=== PATIENT | male | born 1945 | race Caucasian/White ===

== ENCOUNTER 2018-05-24 16:43 | Inpatient (IN) | payer MEDICARE, OTHER ==
[~2018-05-24] VITALS: Ht 175.3 cm; Wt 94.4 kg
[2018-05-24 17:05] LABS: BASOPHILS # (AUTO) 0.1 10^3/uL (0.0-0.1); BASOPHILS % (AUTO) 1 % (0-10); EOSINOPHILS # (AUTO) 0.1 10^3/uL (0.0-0.3); EOSINOPHILS % (AUTO) 1 % (0-10); HEMATOCRIT 42 % (40-54); HEMOGLOBIN 14.5 G/DL (13.3-17.7); LYMPHOCYTES # (AUTO) 2.6 X 10^3 (1.0-4.0); LYMPHOCYTES % (AUTO) 24 % (12-44); MEAN CORPUSCULAR HEMOGLOBIN 30 PG (25-34); MEAN CORPUSCULAR HGB CONC 34 G/DL (32-36); MEAN CORPUSCULAR VOLUME 86 FL (80-99); MONOCYTES # (AUTO) 0.8 X 10^3 (0.0-1.0); MONOCYTES % (AUTO) 8 % (0-12); NEUTROPHILS # (AUTO) 7.1 X 10^3 (1.8-7.8); NEUTROPHILS % (AUTO) 66 % (42-75); PLATELET COUNT 394 10^3/uL (130-400); RED BLOOD COUNT 4.89 10^6/uL (4.35-5.85); RED CELL DISTRIBUTION WIDTH 14.7 % (10.0-14.5); WHITE BLOOD COUNT 10.7 10^3/uL (4.3-11.0)
--- NOTE | 2018-05-24 17:13 | ED General ---
General Stated Complaint: HEAT EXPOSURE/SYNCOPAL EPISODE Source of Information: Patient Exam Limitations: No Limitations History of Present Illness Date Seen by Provider: May 24, 2018 Time Seen by Provider: 16:54 Initial Comments Here by EMS with report of syncopal episode. 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 They did get that down but at the end of the day he had got overheated. He sat down and then subsequently vomited and passed out for about a minute. He is still sweating. EMS was summoned and initiated 2 IVs due to initial blood pressure in the 70s. He arrives with blood pressure in the low 100s systolic and appears to be responding to fluids. They do have 2 L of normal saline running currently. Patient is tolerating that well. He complains of muscle aches in the large muscle groups and describes it as cramping. States he is feeling better now. Timing/Duration: 1/2 Hour Severity: Moderate Associated Systoms: No Chest Pain, No Fever/Chills; Nausea/Vomiting; No Shortness of Air; Syncope, Weakness Allergies and Home Medications Allergies Coded Allergies: Penicillins (Verified Allergy, Unknown, 05/24/18) procaine (Verified Allergy, Unknown, 05/24/18) Patient Home Medication List Home Medication List Reviewed: Yes Review of Systems Constitutional: see HPI; No chills, No fever EENTM: no symptoms reported Respiratory: No cough, No short of breath Cardiovascular: No chest pain, No edema; syncope Gastrointestinal: No abdominal pain; nausea, vomiting Genitourinary: no symptoms reported Musculoskeletal: see HPI, muscle pain, muscle cramps Skin: no symptoms reported All Other Systems Reviewed Negative Unless Noted: Yes Past Xzzrvcb-Mogove-Fettek Hx Past Med/Social Hx: Reviewed Nursing Past Med/Soc Hx Patient Social History Alcohol Use: Occasionally Uses Recreational Drug Use: No Smoking Status: Former Smoker Past Medical History Surgeries: Yes (kidney cyst) Respiratory: No Cardiac: Yes Hypertension Neurological: No Genitourinary: Yes (kidney cysts) Gastrointestinal: No Musculoskeletal: No Endocrine: Yes Hypothyroidsim Family Medical History Reviewed Nursing Family Hx No Pertinent Family Hx Physical Exam Vital Signs Vital Signs - First Documented 05/24/18 16:50 Temp 97.6 Pulse 65 Resp 20 B/P (MAP) 104/63 (77) Pulse Ox 92 O2 Delivery Room Air Capillary Refill : General Appearance: No Apparent Distress, WD/WN HEENT: PERRL/EOMI, Pharynx Normal Neck: Non Tender, Supple Respiratory: Lungs Clear, Normal Breath Sounds Cardiovascular: Regular Rate, Rhythm, No Murmur Gastrointestinal: Non Tender, Soft Back: Normal Inspection, No CVA Tenderness, No Vertebral Tenderness Extremity: Normal Inspection, Normal Range of Motion, Other (tenderness in the upper legs) Neurologic/Psychiatric: Alert, Oriented x3 Skin: Normal Color, Damp, Other (patient is still sweating.) Progress/Results/Core Measures Suspected Sepsis SIRS Temperature: Pulse: Respiratory Rate: Laboratory Tests 05/24/18 16:50: White Blood Count 10.7 Blood Pressure / Mean: Laboratory Tests 05/24/18 16:50: Creatinine 3.16H, Platelet Count 394, Total Bilirubin 0.7 Results/Orders Lab Results Laboratory Tests Test 05/24/18 16:50 Range/Units White Blood Count 10.7 4.3-11.0 10^3/uL Red Blood Count 4.89 4.35-5.85 10^6/uL Hemoglobin 14.5 13.3-17.7 G/DL Hematocrit 42 40-54 % Mean Corpuscular Volume 86 80-99 FL Mean Corpuscular Hemoglobin 30 25-34 PG Mean Corpuscular Hemoglobin Concent 34 32-36 G/DL Red Cell Distribution Width 14.7 H 10.0-14.5 % Platelet Count 394 130-400 10^3/uL Mean Platelet Volume 9.0 7.4-10.4 FL Neutrophils (%) (Auto) 66 42-75 % Lymphocytes (%) (Auto) 24 12-44 % Monocytes (%) (Auto) 8 0-12 % Eosinophils (%) (Auto) 1 0-10 % Basophils (%) (Auto) 1 0-10 % Neutrophils # (Auto) 7.1 1.8-7.8 X 10^3 Lymphocytes # (Auto) 2.6 1.0-4.0 X 10^3 Monocytes # (Auto) 0.8 0.0-1.0 X 10^3 Eosinophils # (Auto) 0.1 0.0-0.3 10^3/uL Basophils # (Auto) 0.1 0.0-0.1 10^3/uL Sodium Level 142 135-145 MMOL/L Potassium Level 4.1 3.6-5.0 MMOL/L Chloride Level 106 98-107 MMOL/L Carbon Dioxide Level 20 L 21-32 MMOL/L Anion Gap 16 H 5-14 MMOL/L Blood Urea Nitrogen 32 H 7-18 MG/DL Creatinine 3.16 H 0.60-1.30 MG/DL Estimat Glomerular Filtration Rate 20 BUN/Creatinine Ratio 10 Glucose Level 165 H 70-105 MG/DL Calcium Level 12.8 H 8.5-10.1 MG/DL Phosphorus Level 3.4 2.3-4.7 MG/DL Total Bilirubin 0.7 0.1-1.0 MG/DL Aspartate Amino Transf (AST/SGOT) 40 H 5-34 U/L Alanine Aminotransferase (ALT/SGPT) 35 0-55 U/L Alkaline Phosphatase 59 40-136 U/L Total Creatine Kinase 926 H 30-200 U/L Total Protein 8.9 H 6.4-8.2 GM/DL Albumin 5.1 H 3.2-4.5 GM/DL My Orders Orders - PO BABCOCK MD Cbc With Automated Diff (05/24/18 16:57) Comprehensive Metabolic Panel (05/24/18 16:57) Creatine Kinase (05/24/18 16:57) Ua Culture If Indicated (05/24/18 16:57) Ionized Calcium (05/24/18 17:33) Phosphorus (05/24/18 17:33) Ns Iv 1000 Ml (Sodium Chloride 0.9%) (05/24/18 17:45) Vital Signs/I&O 05/24/18 16:50 Temp 97.6 Pulse 65 Resp 20 B/P (MAP) 104/63 (77) Pulse Ox 92 O2 Delivery Room Air Capillary Refill : Progress Note : Progress Note Seen and evaluated. We will continue IV fluid initiated by EMS. Labs ordered. Monitor patient. 1737: I have reviewed the labs. Creatinine is elevated and so is the calcium. Patient has elevated total CK. Has findings of acute renal failure, hypercalcemia and rhabdomyolysis. I did discuss the case with Dr. Chadwick. She accepts patient for admission, inpatient status. Findings and concerns discussed with patient and family who agree with plan. Normal saline 250 mL per hour 1 L ordered. We will continue fluid at 150 mL an hour after that. Departure Communication (Admissions) Time/Spoke to Admitting Phy: 17:37 Impression Primary Impression: Acute renal failure Qualified Codes: N17.9 - Acute kidney failure, unspecified Additional Impressions: Rhabdomyolysis Qualified Codes: M62.82 - Rhabdomyolysis Hypercalcemia Volume depletion Disposition: 09 ADMITTED INPATIENT Condition: Stable Admissions Decision to Admit Reason: Admit from ER (General) Decision to Admit/Date: May 24, 2018 Time/Decision to Admit Time: 17:37 Departure-Patient Inst. Referrals: JUAN SINGLETARY DO (PCP/Family) Primary Care Physician PO BABCOCK MD May 24, 2018 17:13
[2018-05-24 17:25] LABS: ALBUMIN 5.1 GM/DL (3.2-4.5); BILIRUBIN,TOTAL 0.7 MG/DL (0.1-1.0); CALCIUM 12.8 MG/DL (8.5-10.1); CREATININE SERUM 3.16 MG/DL (0.60-1.30); POTASSIUM 4.1 MMOL/L (3.6-5.0); TOTAL PROTEIN 8.9 GM/DL (6.4-8.2)
[2018-05-24] MEDS ORDERED: NS IV 1000 ML 1,000 ML IV SCH (17:45)
[2018-05-24] MEDS ORDERED: LEVOTHYROXINE ×2 (17:47→21:34)
[2018-05-24] MEDS ORDERED: LOSARTAN (17:47)
[2018-05-24] MEDS ORDERED: HCTZ (17:47)
[2018-05-24 19:00] VITALS: BP 149/80
[2018-05-24] MEDS ORDERED: ONDANSETRON 4 MG/2 ML (SDV) Z0FRAN IV PRN (19:00)
[2018-05-24] MEDS ORDERED: ACETAMINOPHEN 500 MG TAB (TYLENOL) PO PRN (19:00)
[2018-05-24] MEDS ORDERED: CATHETER FLUSH 10 ML SYR IV PRN (19:00)
[2018-05-24] MEDS: NS IV 1000 ML 1,000 ML IV SCH (20:00)
[2018-05-24 20:47] LABS: BILIRUBIN,URINE NEGATIVE (NEGATIVE); CLARITY,URINE CLEAR; COLOR,URINE YELLOW; GLUCOSE, URINE (UA) NEGATIVE (NEGATIVE); KETONES,URINE NEGATIVE (NEGATIVE); LEUKOCYTE ESTERASE ,URINE 1+ (NEGATIVE); NITRITE,URINE NEGATIVE (NEGATIVE); PH,URINE 5 (5-9); PROTEIN,URINE 3+ (NEGATIVE); UROBILINOGEN,URINE NORMAL (NORMAL)
[2018-05-24 21:07] LABS: BACTERIA,URINE NEGATIVE /HPF
[2018-05-24] MEDS ORDERED: LOSARTAN PO (21:34)
[2018-05-24] MEDS ORDERED: HCTZ PO (21:34)
[2018-05-25 00:02] VITALS: BP 128/71
[2018-05-25] MEDS: NS IV 1000 ML 1,000 ML IV SCH ×3 (02:28→16:48)
[2018-05-25 04:11] VITALS: BP 120/73
[2018-05-25 06:22] LABS: BASOPHILS % (AUTO) 0 % (0-10); EOSINOPHILS # (AUTO) 0.1 10^3/uL (0.0-0.3); EOSINOPHILS % (AUTO) 1 % (0-10); HEMATOCRIT 35 % (40-54); HEMOGLOBIN 11.7 G/DL (13.3-17.7); LYMPHOCYTES # (AUTO) 1.9 X 10^3 (1.0-4.0); LYMPHOCYTES % (AUTO) 22 % (12-44); MEAN CORPUSCULAR HEMOGLOBIN 29 PG (25-34); MEAN CORPUSCULAR HGB CONC 34 G/DL (32-36); MEAN CORPUSCULAR VOLUME 87 FL (80-99); MEAN PLATELET VOLUME 8.9 FL (7.4-10.4); MONOCYTES # (AUTO) 0.7 X 10^3 (0.0-1.0); MONOCYTES % (AUTO) 8 % (0-12); NEUTROPHILS % (AUTO) 68 % (42-75); PLATELET COUNT 314 10^3/uL (130-400); RED BLOOD COUNT 3.99 10^6/uL (4.35-5.85); RED CELL DISTRIBUTION WIDTH 14.9 % (10.0-14.5); WHITE BLOOD COUNT 8.7 10^3/uL (4.3-11.0)
[2018-05-25 06:36] LABS: ALBUMIN 3.6 GM/DL (3.2-4.5); BILIRUBIN,TOTAL 0.5 MG/DL (0.1-1.0); CREATININE SERUM 1.86 MG/DL (0.60-1.30); POTASSIUM 3.9 MMOL/L (3.6-5.0); TOTAL PROTEIN 6.3 GM/DL (6.4-8.2)
[2018-05-25 08:30] VITALS: BP 130/79
--- NOTE | 2018-05-25 08:58 | History & Physical-Hospitalist ---
History of Present Illness HPI/Chief Complaint Pt is a 72yoCM who presented to the ER following a syncopal episode at work. 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 Yesterday he started work at 630AM and did not take many breaks and got behind on his fluid intake. He was standing next to someone who noticed he was looking off balance and steadied him. He then remembers everything getting very light and then passed out. He vomited as well during this episode. EMS was called and he was found to be hypotensive and IVF were started there. Evaluation in the ER revealed him to be in acute renal failure with mild rhabdomyolysis and he was admitted. This morning he is standing at his bed and reports feeling much better. Exam Limitations: no limitations Date Seen 05/25/18 Time Seen by Provider: 08:56 Attending Physician Fani Chadwick MD PCP Gigi Coreas DO Referring Physician Date of Admission May 24, 2018 at 17:56 Home Medications & Allergies Home Medications Reviewed patient Home Medication Reconciliation performed by pharmacy medication reconciliations gastroenterology technician and/or nursing. Patients Allergies have been reviewed. Allergies Allergies Coded Allergies Penicillins (Verified Allergy, Unknown, 05/24/18) procaine (Verified Allergy, Unknown, 05/24/18) Past Bhmwxnd-Nmlpze-Epodvg Hx Past Med/Social Hx: Reviewed Nursing Past Med/Soc Hx Patient Social History Alcohol Use: Occasionally Uses Alcohol Beverage of Choice: Wine Recreational Drug Use: No Smoking Status: Former Smoker 2nd Hand Smoke Exposure: No Physical Abuse Screen: No Sexual Abuse: No Recent Foreign Travel: No Contact w/other who traveled: No Recent Hopitalizations: No Recent Infectious Disease Expo: No Seasonal Allergies Seasonal Allergies: No Past Medical History Currently Using CPAP: No Currently Using BIPAP: No Cardiac: Hypertension Sexually Transmitted Disease: No HIV/AIDS: No Endocrine: Hypothyroidsim History of Blood Disorders: No Adverse Reaction to Blood Jeffery: No Family History Reviewed Nursing Family Hx No Pertinent Family Hx Review of Systems Constitutional: No chills; diaphoresis; No fever EENTM: No blurred vision, No double vision, No nose congestion, No throat pain Respiratory: No cough, No dyspnea on exertion, No short of breath Cardiovascular: No chest pain, No edema, No palpitations; syncope Gastrointestinal: No abdominal pain, No constipation, No diarrhea, No nausea, No vomiting Genitourinary: No dysuria, No frequency Musculoskeletal: No joint pain, No muscle pain Skin: No lesions, No rash Psychiatric/Neurological: Denies Headache, Denies Numbness, Denies Seizure, Denies Tingling Physical Exam Physical Exam Vital Signs Vital Signs - First Documented 05/24/18 16:50 Temp 97.6 Pulse 65 Resp 20 B/P (MAP) 104/63 (77) Pulse Ox 92 O2 Delivery Room Air Capillary Refill : Less Than 3 Seconds General Appearance: No Apparent Distress, WD/WN HEENT: PERRL/EOMI, Moist Mucous Membranes Neck: Non Tender, Supple Respiratory: Lungs Clear, No Respiratory Distress Cardiovascular: Regular Rate, Rhythm, No Murmur Gastrointestinal: Normal Bowel Sounds, Non Tender, Soft Extremity: Normal Capillary Refill, No Calf Tenderness Neurologic/Psychiatric: Alert, Oriented x3, Normal Mood/Affect Skin: Normal Color, Warm/Dry Results Results/Procedures Labs Laboratory Tests 05/24/18 16:50 05/25/18 05:52 Patient resulted labs reviewed. Assessment/Plan Admission Diagnosis Acute renal failure Admission Status: Inpatient Order (span 2 midnights) Reason for Inpatient Admission: IVF fluids, mild rhabdo Diagnosis/Problems Diagnosis/Problems (1) Acute renal failure Status: Acute Assessment & Plan: Heat Treater improved today but still not back to his normal Continue IVF Hypercalcemia improving Qualifiers: Acute renal failure type: unspecified Qualified Codes: N17.9 - Acute kidney failure, unspecified (2) Rhabdomyolysis Status: Acute Assessment & Plan: Improving, continue IVF Qualifiers: Rhabdomyolysis type: non-traumatic Qualified Codes: M62.82 - Rhabdomyolysis (3) Hypercalcemia Status: Acute Assessment & Plan: Improved but at upper limits of normal Will need outpatient follow up Clinical Quality Measures DVT/VTE Risk/Contraindication: Risk Factor Score Per Nursin RFS Level Per Nursing on Admit: 3=High FANI CHADWICK MD May 25, 2018 8:58 am
[2018-05-25] MEDS ORDERED: LEVO150T6 PO (09:14)
[2018-05-25] MEDS ORDERED: LOSA50TA36 PO (09:14)
[2018-05-25] MEDS ORDERED: HYDR25TA4 PO (09:14)
[2018-05-25] MEDS ORDERED: MULT-406 PO (09:16)
[2018-05-25] MEDS ORDERED: THIA100T80 PO (09:16)
[2018-05-25] MEDS ORDERED: CYAN10006 PO (09:16)
[2018-05-25] MEDS ORDERED: VITA400C58 PO (09:16)
[2018-05-25] MEDS ORDERED: CHOL10007 PO (09:16)
[2018-05-25] MEDS ORDERED: BETA10003 PO (09:16)
[2018-05-25] MEDS ORDERED: ASCO-262 PO (09:16)
[2018-05-25] MEDS ORDERED: PYRI100T2 PO (09:16)
[2018-05-25 12:30] VITALS: BP 145/81
[2018-05-25] MEDS ORDERED: PATIENT MAY USE OWN MEDS, ALL MC SCH (14:30)
[2018-05-25 15:35] VITALS: BP 133/70
[2018-05-25 20:30] VITALS: BP_SYST 162; BP_SYST 165; BP_DIAS 88; BP_DIAS 94
[2018-05-25] MEDS ORDERED: LEVOTHYROXINE 150 MCG (LEVOTHROID) TAB PO SCH (21:00)
[2018-05-26] MEDS: NS IV 1000 ML 1,000 ML IV SCH ×2 (00:03→06:31)
[2018-05-26 00:07] VITALS: BP 144/73
[2018-05-26] MEDS ORDERED: ASCORBIC ACID (VIT C) 500 MG TABLET PO SCH (07:00)
[2018-05-26] MEDS ORDERED: THIAMINE 100 MG (VITAMIN B-1) TAB PO SCH (07:00)
[2018-05-26] MEDS ORDERED: MULTIVIT W/MINERALS TAB (THERAGRAN M) PO SCH (07:00)
[2018-05-26 08:30] VITALS: BP 136/72
[2018-05-26] MEDS ORDERED: CYANOCOBALAMIN 1,000 MCG (VITAMIN B-12) TABLET PO SCH (09:00)
[2018-05-26] MEDS ORDERED: VITAMIN D3 1,000 UNITS (CHOLECALCIFEROL) TABLET PO SCH (09:00)
[2018-05-26] MEDS ORDERED: PYRIDOXINE (VITAMIN B-6) 50 MG TABLET PO SCH (09:00)
[2018-05-26] MEDS ORDERED: NON-FORMULARY MEDICATION 1 EA EA (Ascorbate Calcium (Vitamin C) 500 MG) PO SCH (09:00)
[2018-05-26] MEDS ORDERED: THIAMINE HCL 100 MG PO SCH (09:00)
[2018-05-26] MEDS ORDERED: NON-FORMULARY MEDICATION 1 EA EA (Cholecalciferol (Vitamin D3) (Vitamin D3) 1,000 UNIT) PO SCH (09:00)
[2018-05-26] MEDS ORDERED: VITAMIN E 400 INTLU CAP PO SCH (09:00)
[2018-05-26] MEDS ORDERED: MULTIVITAMIN WITH MINERALS PO SCH (09:00)
[2018-05-26] MEDS ORDERED: PYRIDOXINE HCL 100 MG PO SCH (09:00)
[2018-05-26] MEDS ORDERED: BETA CAROTENE PO SCH (09:00)
[2018-05-26] MEDS ORDERED: NON-FORMULARY MEDICATION 1 EA EA (Vitamin E Mixed (Vitamin E) 400 UNIT) PO SCH (09:00)
[2018-05-26 09:18] LABS: CALCIUM 9.9 MG/DL (8.5-10.1); CREATININE SERUM 1.23 MG/DL (0.60-1.30)
--- NOTE | 2018-05-26 09:57 | Progress Note-Hospitalist ---
Progress Note Progress Notes/Assess & Plan Date Seen 05/26/18 Time Seen by Provider: 09:52 Assessment & Plan The patient is a 72-year-old white male who was admitted on 05/24 after having a syncopal episode at work. 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 He had been out in the heat for several hours working on a project. His coworkers noted him to be wobbly and moved to assist him and then he dropped. States that he had been taking fluids but apparently not enough. Initial workup showed his creatinine to be 3+, CPK to be 300+, and calcium to be elevated. These have all improved satisfactorily with hydration and he feels good today. We discussed mechanisms to avoid this in the future which would include early start time and knocking off by noon or sooner if the heat index is aBOMINABLE. It is also suggested that on those days he not take his scheduled hydrochlorothiazide. Physical exam: He is bright and engaging. Lungs clear to auscultation. CV is regular. Impression: Dehydration/heat exhaustion. 2.hypertension Plan: Discharge. See discharge sequence for medications and routines. JASPER COLLIER MD May 26, 2018 09:57
--- NOTE | 2018-05-26 10:06 | Discharge Instructions ---
Discharge Instructions Patient Instructions Patient Instructions: In the future make intellectual decisions about safety in heat conditions. This would include a brim hat, measured fluid replacement including Gatorade. Commencing work at sunrise and quitting at noon or earlier as refers would do is also prudent. In addition I would not take the hydrochlorothiazide on work days in this kind of heat. Activity & Diet Discharge Diet: No Restrictions Activity as Tolerated: Yes JASPER COLLIER MD May 26, 2018 10:06
--- NOTE | 2018-05-26 10:08 | Short Stay Summary-Hospitalist ---
Short Stay Diagnosis D/C Date 05/26/18 1.dehydration/acute renal failure. 2 mild to moderate rhabdomyolysis. 3.hypertension Clinical Quality Measures DVT/VTE Risk/Contraindication: Risk Factor Score Per Nursin RFS Level Per Nursing on Admit: 3=High JASPER COLLIER MD May 26, 2018 10:08
[2018-05-27] MEDS ORDERED: NON-FORMULARY MEDICATION 1 EA EA (Losartan Potassium 25 MG) PO SCH (09:00)
[2018-05-27] MEDS ORDERED: NON-FORMULARY MEDICATION 1 EA EA (Hydrochlorothiazide 25 MG) PO SCH (09:00)
[2018-07-09] MEDS ORDERED: APIX5TAB PO (09:18)
== END 2018-05-26 10:45 | disposition home or self-care (01) | DRG 683 ==
LOC: EDUNIT# 16:43 → ER 16:44 → 4TH 17:56
PROVIDERS: ADMIT Family Medicine; ATTEND Family Medicine
DX: N17.9 Acute kidney failure, unspecified (principal); M62.82 Rhabdomyolysis; E83.52 Hypercalcemia; T67.5XXA Heat exhaustion, unspecified, initial encounter; E86.0 Dehydration; R55 Syncope and collapse; I10 Essential (primary) hypertension; E03.9 Hypothyroidism, unspecified; N28.1 Cyst of kidney, acquired; X30.XXXA Exposure to excessive natural heat, initial encounter; Z87.891 Personal history of nicotine dependence
CPT/HCPCS: 36415; 80048; 80053; 81000; 82330; 82550; 84100; 85025; 96360

== ENCOUNTER → 2018-08-16 | Outpatient (CLI) | payer MEDICARE, OTHER ==
[~2018-08-16] MED LIST: APIX5TAB PO; ASCO-262 PO; BETA10003 PO; CHOL10007 PO; CYAN10006 PO; HCTZ; HCTZ PO; HYDR25TA4 PO; LEVO150T6 PO; LEVOTHYROXINE; LOSA50TA7 PO; LOSARTAN; LOSARTAN PO; MULT-406 PO; PYRI100T2 PO; THIA100T80 PO; VITA400C58 PO
== END ==
LOC: CARD 10:37
PROVIDERS: ATTEND Internal Medicine Interventional Cardiology
DX: I82.409 Acute embolism and thrombosis of unspecified deep veins of unspecified lower extremity (principal); I10 Essential (primary) hypertension; I26.99 Other pulmonary embolism without acute cor pulmonale; I27.20 Pulmonary hypertension, unspecified; I34.0 Nonrheumatic mitral (valve) insufficiency
CPT/HCPCS: 93306

== ENCOUNTER → 2018-08-20 | Outpatient (CLI) | payer MEDICARE, OTHER ==
[~2018-08-20] MED LIST changes: +RT-ALBUTEROL SULF 2.5 MG/3 ML PRE-MIX VIAL INH ONE
== END ==
LOC: RT 09:35
PROVIDERS: ATTEND Nurse Practitioner Family
DX: R06.00 Dyspnea, unspecified (principal); I26.99 Other pulmonary embolism without acute cor pulmonale
CPT/HCPCS: 94060; 94726; 94729

== ENCOUNTER → 2018-12-07 | Outpatient (CLI) | payer MEDICARE, OTHER ==
[~2018-12-07] MED LIST changes: -RT-ALBUTEROL SULF 2.5 MG/3 ML PRE-MIX VIAL INH ONE
== END ==
LOC: CARD 10:58
PROVIDERS: ATTEND Internal Medicine Interventional Cardiology
DX: I82.409 Acute embolism and thrombosis of unspecified deep veins of unspecified lower extremity (principal); I10 Essential (primary) hypertension; I26.99 Other pulmonary embolism without acute cor pulmonale; I27.20 Pulmonary hypertension, unspecified; I51.9 Heart disease, unspecified
CPT/HCPCS: 93306

== ENCOUNTER → 2019-06-06 | Outpatient (CLI) | payer MEDICARE, OTHER ==
[~2019-06-06] MED LIST changes: +LOSA50TA63 PO; -LOSA50TA7 PO
== END ==
LOC: CARD 09:48
PROVIDERS: ATTEND Internal Medicine Interventional Cardiology
DX: I34.0 Nonrheumatic mitral (valve) insufficiency (principal); I27.20 Pulmonary hypertension, unspecified; I11.9 Hypertensive heart disease without heart failure; I82.409 Acute embolism and thrombosis of unspecified deep veins of unspecified lower extremity; I26.99 Other pulmonary embolism without acute cor pulmonale
CPT/HCPCS: 93306

== ENCOUNTER 2019-12-05 08:00 | Emergency (ER) | payer MEDICARE, OTHER ==
[~2019-12-05] VITALS: Ht 175 cm; Wt 93.0 kg
[~2019-12-05 08:00] MED LIST changes: +CYAN-41 PO; -CYAN10006 PO; -PYRI100T2 PO; +PYRI100T4 PO; +VITA-272 PO; -VITA400C58 PO
[2019-12-05] MEDS ORDERED: ETOMIDATE IV SOLN 20 MG/10 ML VIAL IV ONE (08:07)
[2019-12-05] MEDS ORDERED: MIDAZOLAM 5 MG/5 ML (VERSED) VIAL INJ ONE (08:07)
[2019-12-05] MEDS ORDERED: SUCCINYLCHOLINE INJ 100 MG/5 ML SYR INJ ONE (08:07)
[2019-12-05] MEDS ORDERED: ROCURONIUM 10 MG/ML 5 ML SYRINGE IV ONE (08:07)
[2019-12-05] MEDS ORDERED: NS IV 1000 ML 1,000 ML IV SCH (08:12)
[2019-12-05] MEDS ORDERED: ONDANSETRON 4 MG/2 ML (SDV) Z0FRAN IVP ONE (08:15)
--- NOTE | 2019-12-05 08:25 | NUR ---
PT TO CT BY CART
--- NOTE | 2019-12-05 08:34 | NUR ---
CALLED TO CHECK TO SEE IF [facility] CAN FLY
--- NOTE | 2019-12-05 08:35 | NUR ---
BACK TO ROOM, PT HAS BLEED DR HERBERT IN CT W PT.
--- NOTE | 2019-12-05 08:35 | NUR ---
UNABLE TO COMPLETE STROKE SCALE
--- NOTE | 2019-12-05 08:36 | NUR ---
[facility] ON STAND BY
--- NOTE | 2019-12-05 08:44 | Diagnostic Imaging Report ---
PROCEDURE: CT head wo r/o stroke. TECHNIQUE: Multiple contiguous axial images were obtained through the brain without the use of intravenous contrast. Auto Exposure Controls were utilized during the CT exam to meet ALARA standards for radiation dose reduction. All CT scans use one or more of the following dose optimizing techniques: automated exposure control, MA and/or KvP adjustment based on patient size and exam type or iterative reconstruction. INDICATION: Stroke, fall. COMPARISON: No prior studies are available for comparison. FINDINGS: There is a moderate amount of acute intraventricular hemorrhage. Acute blood is identified in bilateral lateral ventricles as well as the third ventricle and the fourth ventricle. There is a 16 mm rounded area of hyperdensity in the right cerebellar hemisphere consistent with an acute intraparenchymal hematoma. No other areas of hemorrhage are identified. There is no midline shift. No definite sulcal effacement is seen. IMPRESSION: Acute intraventricular and intraparenchymal hemorrhage, as described. Dictated by: Dictated on workstation # [id number]
--- NOTE | 2019-12-05 08:44 | Diagnostic Imaging Report ---
PROCEDURE: CT cervical spine without contrast. TECHNIQUE: Multiple contiguous axial images were obtained through the cervical spine without the use of intravenous contrast. Sagittal and coronal reformations were then performed. Auto Exposure Controls were utilized during the CT exam to meet ALARA standards for radiation dose reduction. INDICATION: Fall. No prior studies are available for comparison. FINDINGS: Curvature of the cervical spine is normal. There is minimal retrolisthesis C4 on C5. There is degenerative disc disease of C4 on C5. Prevertebral tissues are within normal limits. No fractures are identified. Odontoid is intact. IMPRESSION: Cervical spondylosis. No acute bony abnormality is detected. Dictated by: Dictated on workstation # [id number]
[2019-12-05] MEDS ORDERED: SCOPOLAMINE 1.5 MG (TRANSDERM-SCOP) PATCH TD ONE (08:45)
[2019-12-05] MEDS ORDERED: NS IV 500 ML 500 ML IV SCH (08:45)
--- NOTE | 2019-12-05 08:45 | NUR ---
PT O2 SAT DECREASING TO 88% ON ROOM AIR, O2 APPLIED RT NOTIFIED ETCO2-24
--- NOTE | 2019-12-05 08:50 | NUR ---
PT DOES NOT WANT PT INTUBATED AT THIS X.
[2019-12-05 08:51] LABS: BASOPHILS % (AUTO) 0 % (0-10); EOSINOPHILS % (AUTO) 0 % (0-10); HEMATOCRIT 40 % (40-54); HEMOGLOBIN 12.9 G/DL (13.3-17.7); LYMPHOCYTES # (AUTO) 0.5 X 10^3 (1.0-4.0); LYMPHOCYTES % (AUTO) 4 % (12-44); MEAN CORPUSCULAR HEMOGLOBIN 29 PG (25-34); MEAN CORPUSCULAR HGB CONC 33 G/DL (32-36); MEAN CORPUSCULAR VOLUME 88 FL (80-99); MEAN PLATELET VOLUME 8.5 FL (7.4-10.4); MONOCYTES # (AUTO) 0.3 X 10^3 (0.0-1.0); MONOCYTES % (AUTO) 2 % (0-12); NEUTROPHILS # (AUTO) 9.5 X 10^3 (1.8-7.8); NEUTROPHILS % (AUTO) 93 % (42-75); PLATELET COUNT 314 10^3/uL (130-400); RED CELL DISTRIBUTION WIDTH 13.7 % (10.0-14.5); WHITE BLOOD COUNT 10.2 10^3/uL (4.3-11.0)
[2019-12-05 08:53] LABS: BILIRUBIN,URINE NEGATIVE (NEGATIVE); CLARITY,URINE CLEAR; COLOR,URINE YELLOW; GLUCOSE, URINE (UA) NEGATIVE (NEGATIVE); KETONES,URINE NEGATIVE (NEGATIVE); LEUKOCYTE ESTERASE ,URINE NEGATIVE (NEGATIVE); NITRITE,URINE NEGATIVE (NEGATIVE); PH,URINE 6.5 (5-9); PROTEIN,URINE 1+ (NEGATIVE)
[2019-12-05] MEDS ORDERED: HUMAN PROTHROMBIN COMPLX(PCC) 500 UNIT (KCENTRA) IV ONE ×2 (08:54→09:00)
[2019-12-05 09:02] LABS: INR 1.1 (0.8-1.4); PROTHROMBIN TIME PATIENT 14.9 SEC (12.2-14.7)
--- NOTE | 2019-12-05 09:05 | NUR ---
PT ON OXY MASK AT 10L, O2 SATS 90%.[id number] AT BEDSIDE W , HAS DECIDED TO ALLOW PT TO BE INTUBATED. DR HERBERT NOTIFIED.
[2019-12-05 09:07] LABS: BACTERIA,URINE NEGATIVE /HPF; RBC,URINE RARE /HPF; SQUAMOUS EPITHELIAL CELL,UR RARE /HPF
[2019-12-05 09:10] LABS: ALBUMIN 4.3 GM/DL (3.2-4.5); BILIRUBIN,TOTAL 0.2 MG/DL (0.1-1.0); CALCIUM 10.6 MG/DL (8.5-10.1); CREATININE SERUM 1.4 MG/DL (0.60-1.30); MAGNESIUM 2.1 MG/DL (1.6-2.4); POTASSIUM 4.2 MMOL/L (3.6-5.0); TOTAL PROTEIN 7.6 GM/DL (6.4-8.2)
--- NOTE | 2019-12-05 09:12 | NUR ---
PT READIED FOR INTUBATION RT IN ROOM. VERSED 4MG IV GIVEN ORDERED, KELLI 100MG IV GIVEN 912 SUCCS 100MG IV GIVEN 912 PHARMACY HERE, [facility] STARTED 0915 PT INTUBATED BY RT #8.0 ET TUBE, 22CM @ TEETH. GOOD COLOR CHANGE BS = BILAT,SAT 100% AIRWAY MAINTAINED BY RT 0918 OG #16 INSERTED 0920 [facility] HERE. 0937 [facility] INFUSION COMPLETE 0940 [facility] SENT W [facility] FOR PT 0941 AND DAUGHTER IN LAW AT BEDSIDE 0945 [facility] SENT W [facility] FOR PT. 0949 DISCHARGED TO PER [facility] 0955 REPORT CALLED TO CURLY HERNANDEZ @ MED.
[2019-12-05 09:15] LABS: ABG BASE EXCESS -0.8 MMOL/L (-2.5-2.5); ABG OXYGEN SATURATION 93 % (94-100); ABG PCO2 40 MMHG (35-45); ABG PH 7.39 (7.37-7.43); ABG PO2 62 MMHG (79-93); ABG TCO2 25.3 MMOL/L (21.0-31.0); ALLENS TEST POSITIVE
[2019-12-05 09:16] LABS: INSPIRED O2 20L 50% FI02; PATIENT TEMP 35.2; VENTILATOR NO
--- NOTE | 2019-12-05 09:18 | ED General ---
General Stated Complaint: WEAKNESS Source of Information: Spouse ( IS LIMITED HISTORIAN), Other (PT IS CONFUSED, UNABLE TO GIVE RELIABLE INFORMATION. ) History of Present Illness Date Seen by Provider: Dec 05, 2019 Time Seen by Provider: 08:05 Initial Comments PT ARRIVES VIA POV FROM HOME, WITH . NEEDS FULL ASSIST AND WHEELCHAIR TO GET OUT OF VEHICLE REPORTS THAT LAST KNOWN WELL TIME WAS 2100 LAST NIGHT STATES THAT AT 0230, SHE HEARD HIM FALL AGAINST THE WALL IN THE HALLWAY, THEN HE WAS ABLE TO WALK TO BATHROOM AND WAS VERY UNSTEADY AND VERY WEAK, AND HE SAT DOWN ON TOILET REPORTS THAT HE WAS VOMITING EVERY 15 MINUTES, UNTIL 0600, AND NOW JUST HAVING DRY HEAVES SHE STATES THAT HE FELL OFF THE TOILET AND LANDED BETWEEN THE TOILET AND THE WALL STATES HE HAS BEEN VERY CONFUSED SINCE SHE FOUND HIM AT 0230 PT IS ON ELIQUIS FOR MULTIPLE DVT'S AND MASSIVE P.E.'S 06/2018--LAST DOSE WAS LAST NIGHT PT ALSO HAS HISTORY OF HTN. PCP: DR. SINGLETARY ANIMAL HERDER: DR. JORDAN Allergies and Home Medications Allergies Coded Allergies: Penicillins (Verified Allergy, Unknown, 05/24/18) procaine (Verified Allergy, Unknown, 05/24/18) Home Medications Apixaban 5 Mg Tablet, 5 MG PO BID Take 10 mg twice daily for 6 days then continue on 5 mg twice daily Prescribed by: YUMIKO LOPEZ on 07/09/18 0918 Ascorbate Calcium 500 Mg Tablet, 500 MG PO DAILY, (Reported) Beta-Carotene 10,000 Unit Capsule, 1 CAP PO DAILY, (Reported) Cholecalciferol (Vitamin D3) 1,000 Unit Capsule, 1,000 UNIT PO DAILY, (Reported) Cyanocobalamin (Vitamin B-12) 1,000 Mcg Tablet, 1,000 MCG PO DAILY, (Reported) Levothyroxine Sodium 150 Mcg Tablet, 150 MCG PO HS, (Reported) Losartan Potassium 50 Mg Tablet, 25 MG PO DAILY, (Reported) TAKES 1/2 (50MG) TABLET Multivitamin with Minerals 1 Each Tablet, 1 TAB PO DAILY, (Reported) Pyridoxine HCl 100 Mg Tablet, 100 MG PO DAILY, (Reported) Thiamine HCl 100 Mg Tablet, 100 MG PO DAILY, (Reported) Vitamin E Mixed 400 Unit Capsule, 400 UNIT PO DAILY, (Reported) Patient Home Medication List Home Medication List Reviewed: Yes Review of Systems Review of Systems Constitutional: see HPI Gastrointestinal: see HPI Psychiatric/Neurological: See HPI Past Anoevim-Yjatgw-Ipogbd Hx Patient Social History Alcohol Use: Occasionally Uses Alcohol Beverage of Choice: Wine 2nd Hand Smoke Exposure: No Recent Hopitalizations: No Immunizations Up To Date Date of Pneumonia Vaccine: Sep 07, 2015 Seasonal Allergies Seasonal Allergies: No Past Medical History Surgeries: Yes (RENAL CYST;CARDIAC & PULMONARY ANGIOGRAM WITH DIRECT THROMBOLYSIS OF P.E.) Renal Respiratory: Yes (MASSIVE P.E.'S 06/2018) Pulmonary Embolism Currently Using CPAP: No Currently Using BIPAP: No Cardiac: Yes (CARDIAC & PULMONARY ANGIOGRAM WITH DIRECT THROMBOLYSIS OF P.E. 06/2018) Deep Vein Thrombosis, Hypertension Neurological: No Sexually Transmitted Disease: No HIV/AIDS: No Genitourinary: Yes (RENAL CYSTS) Gastrointestinal: No Musculoskeletal: No Endocrine: Yes Hypothyroidsim HEENT: No Cancer: No Psychosocial: No Integumentary: No Blood Disorders: No Adverse Reaction/Blood Tranf: No Physical Exam Vital Signs Vital Signs - First Documented 12/05/19 12/05/19 08:00 10:08 Temp 37.6 Pulse 44 Resp 18 B/P (MAP) 192/106 (134) Pulse Ox 96 O2 Delivery Room Air O2 Flow Rate 50.00 Capillary Refill : Height, Weight, BMI Height: 5'9.00" Weight: 206lbs. 8.0oz. 93.006689nm; 29.8 BMI Method:Stated General Appearance: No Apparent Distress, WD/WN HEENT: PERRL/EOMI (PUPILS 1-2 MM AND EQUAL) Neck: Full Range of Motion, Normal Inspection, Non Tender, Supple; No Carotid Bruit, No JVD Respiratory: Normal Breath Sounds, No Accessory Muscle Use, No Respiratory Distress Cardiovascular: Regular Rate, Rhythm, No Edema, No JVD, No Murmur, Normal Peripheral Pulses Gastrointestinal: Normal Bowel Sounds, No Organomegaly, No Pulsatile Mass, Non Tender, Soft Back: No CVA Tenderness, No Vertebral Tenderness Extremity: Normal Capillary Refill, Normal Inspection, Normal Range of Motion, Non Tender, No Calf Tenderness, No Pedal Edema Neurologic/Psychiatric: Alert (BUT SOMEWHAT DROWSY), No Motor/Sensory Deficits; No Aphasia, No Facial Droop; Other (PT ORIENTED TO PERSON, GROSSLY AWARE THAT HE IS IN HOSPITAL, BUT CONFUSED TO TIME AND SITUATION AND POOR MEMORY. MOVES ALL EXTREMITIES BUT HAS DIFFICULTY FOLLOWING SOME COMMANDS, BUT CAN FOLLOW A FEW SIMPLE COMMANDS.SPEECH IS CLEAR, BUT IS NON-SENSICAL.) Skin: Cool, Pallor Procedures/Interventions Intubation Method: orotracheal Tube Size: 8.0 Medications: Rocuronium, Succinylcholine, Versed Positive End Tide CO2: Yes Breath Sounds after Intubation: bilateral-equal Intubation Complications: no complications Post Intubation Xray: Yes PERFORMED BY RT STAFF Progress/Results/Core Measures Suspected Sepsis SIRS Temperature: Pulse: Respiratory Rate: Laboratory Tests 12/05/19 08:44: White Blood Count 10.2 Blood Pressure / Mean: Laboratory Tests 12/05/19 08:44: Creatinine 1.40H, INR Comment 1.1, Platelet Count 314, Total Bilirubin 0.2 Results/Orders Lab Results Laboratory Tests Test 12/05/19 08:24 12/05/19 08:44 12/05/19 09:07 Range/Units Glucometer 119 H 70-110 MG/DL White Blood Count 10.2 4.3-11.0 10^3/uL Red Blood Count 4.49 4.35-5.85 10^6/uL Hemoglobin 12.9 L 13.3-17.7 G/DL Hematocrit 40 40-54 % Mean Corpuscular Volume 88 80-99 FL Mean Corpuscular Hemoglobin 29 25-34 PG Mean Corpuscular Hemoglobin Concent 33 32-36 G/DL Red Cell Distribution Width 13.7 10.0-14.5 % Platelet Count 314 130-400 10^3/uL Mean Platelet Volume 8.5 7.4-10.4 FL Neutrophils (%) (Auto) 93 H 42-75 % Lymphocytes (%) (Auto) 4 L 12-44 % Monocytes (%) (Auto) 2 0-12 % Eosinophils (%) (Auto) 0 0-10 % Basophils (%) (Auto) 0 0-10 % Neutrophils # (Auto) 9.5 H 1.8-7.8 X 10^3 Lymphocytes # (Auto) 0.5 L 1.0-4.0 X 10^3 Monocytes # (Auto) 0.3 0.0-1.0 X 10^3 Eosinophils # (Auto) 0.0 0.0-0.3 10^3/uL Basophils # (Auto) 0.0 0.0-0.1 10^3/uL Neutrophils % (Manual) 90 % Lymphocytes % (Manual) 8 % Monocytes % (Manual) 2 % Toxic Granulation 1+ Poikilocytosis SLIGHT Elliptocytes SLIGHT Prothrombin Time 14.9 H 12.2-14.7 SEC INR Comment 1.1 0.8-1.4 Activated Partial Thromboplast Time 34 24-35 SEC Urine Color YELLOW Urine Clarity CLEAR Urine pH 6.5 5-9 Urine Specific Carney 1.025 H 1.016-1.022 Urine Protein 1+ H NEGATIVE Urine Glucose (UA) NEGATIVE NEGATIVE Urine Ketones NEGATIVE NEGATIVE Urine Nitrite NEGATIVE NEGATIVE Urine Bilirubin NEGATIVE NEGATIVE Urine Urobilinogen 0.2 < = 1.0 MG/DL Urine Leukocyte Esterase NEGATIVE NEGATIVE Urine RBC (Auto) NEGATIVE NEGATIVE Urine RBC RARE /HPF Urine WBC NONE /HPF Urine Squamous Epithelial Cells RARE /HPF Urine Crystals NONE /LPF Urine Bacteria NEGATIVE /HPF Urine Casts NONE /LPF Urine Mucus NEGATIVE /LPF Urine Culture Indicated NO Sodium Level 140 135-145 MMOL/L Potassium Level 4.2 3.6-5.0 MMOL/L Chloride Level 106 98-107 MMOL/L Carbon Dioxide Level 21 21-32 MMOL/L Anion Gap 13 5-14 MMOL/L Blood Urea Nitrogen 24 H 7-18 MG/DL Creatinine 1.40 H 0.60-1.30 MG/DL Estimat Glomerular Filtration Rate 50 BUN/Creatinine Ratio 17 Glucose Level 141 H 70-105 MG/DL Calcium Level 10.6 H 8.5-10.1 MG/DL Corrected Calcium 10.4 H 8.5-10.1 MG/DL Magnesium Level 2.1 1.6-2.4 MG/DL Total Bilirubin 0.2 0.1-1.0 MG/DL Aspartate Amino Transf (AST/SGOT) 20 5-34 U/L Alanine Aminotransferase (ALT/SGPT) 23 0-55 U/L Alkaline Phosphatase 68 40-136 U/L Total Creatine Kinase 160 30-200 U/L Creatine Kinase MB 6.1 <6.6 NG/ML Myoglobin 204.8 H 10.0-92.0 NG/ML Troponin I 0.035 H <0.028 NG/ML B-Type Natriuretic Peptide 49.9 <100.0 PG/ML Total Protein 7.6 6.4-8.2 GM/DL Albumin 4.3 3.2-4.5 GM/DL Amylase Level 56 25-125 U/L Lipase 22 8-78 U/L TSH [place] Testing 3.77 0.35-4.94 UIU/ML Blood Gas Puncture Site LEFT RADIAL Blood Gas Patient Temperature 35.2 Arterial Blood pH 7.39 7.37-7.43 Arterial Blood Partial Pressure CO2 40 35-45 MMHG Arterial Blood Partial Pressure O2 62 L 79-93 MMHG Arterial Blood HCO3 24 23-27 MMOL/L Arterial Blood Total CO2 25.3 21.0-31.0 MMOL/L Arterial Blood Oxygen Saturation 93 L 94-100 % Arterial Blood Base Excess -0.8 -2.5-2.5 MMOL/L Jacob Test POSITIVE Blood Gas Ventilator Setting NO Blood Gas Inspired Oxygen 20L 50% FI02 My Orders Orders - JOSE RAMON HERBERT DO Ed Iv/Invasive Line Start (12/05/19 08:12) Ekg Tracing (12/05/19 08:12) O2 (12/05/19 08:12) Monitor-Rhythm Ecg Trace Only (12/05/19 08:12) Ct Head Wo-R/O Stroke (12/05/19 08:12) Ct Cervical Spine Wo (12/05/19 08:12) Chest 1 View, Ap/Pa Only (12/05/19 08:12) Amylase (12/05/19 08:12) BNP (12/05/19 08:12) Cbc With Automated Diff (12/05/19 08:12) Comprehensive Metabolic Panel (12/05/19 08:12) Creatine Kinase (12/05/19 08:12) Creatine Kinase Mb (12/05/19 08:12) Lipase (12/05/19 08:12) Magnesium (12/05/19 08:12) Protime With Inr (12/05/19 08:12) Partial Thromboplastin Time (12/05/19 08:12) Thyroid Analyzer (12/05/19 08:12) Troponin I (12/05/19 08:12) Ua Culture If Indicated (12/05/19 08:12) Myoglobin Serum (12/05/19 08:12) Ondansetron Injection (Zofran Injectio (12/05/19 08:15) Ed Iv/Invasive Line Start (12/05/19 08:12) Ns Iv 1000 Ml (Sodium Chloride 0.9%) (12/05/19 08:12) Accucheck Stat ONCE (12/05/19 08:23) Catheter(Urinary) Insert & Ass 03,15 (12/05/19 08:23) Scopolamine Patch (Transderm-Scop Patch) (12/05/19 08:45) Fresh Frozen Plasma (12/05/19 08:42) Ns Iv 500 Ml (Sodium Chloride 0.9%) (12/05/19 08:45) Catheter(Urinary) Insert & Ass 03,15 (12/05/19 08:42) Abo Rh Type (12/05/19 08:42) Human Prothrombin Complx(Pcc) (Kcentra K (12/05/19 09:00) Manual Differential (12/05/19 08:44) Human Prothrombin Complx(Pcc) (Kcentra K (12/05/19 08:54) Arterial Blood Gas (12/05/19 09:04) Ng Tube Insert & Assessment (12/05/19 09:17) Nicardipine Iv For Drip (Cardene I.V. (O (12/05/19 09:38) Nicardipine Iv For Drip (Cardene I.V. (O (12/05/19 09:38) Ns (Ivpb) (Sodium Chloride 0.9%) (12/05/19 09:40) Nicardipine Iv For Drip (Cardene I.V. (O (12/05/19 09:40) Arterial Blood Draw (12/05/19 ) Etomidate Injection (Amidate Injection) (12/05/19 08:07) Midazolam Injection (Versed Injection) (12/05/19 08:07) Rocuronium 5 Ml Syringe (Rocuronium 5 Ml (12/05/19 08:07) Succinylcholine Injection (Succinylcholi (12/05/19 08:07) Medications Given in ED Vital Signs/I&O Capillary Refill : Point of Care Testing Finger Stick Blood Glucose: 119 Progress Note : Progress Note PT HAD INCREASING SOMNOLENCE--FALLS ASLEEP WITH SNOROUS BREATHING, QUICKLY WAKES TO VERBAL AND TACTILE STIMULUS, THEN FALLS ASLEEP AGAIN. O2 SATS IN LOW 90'S ON O2 --DID NOT TOLERATE OXI-MASK, AND NO SIGNIFICANT IMPROVEMENT WITH VAPOTHERM. DISCUSSED WITH AND FAMILY, THE CT FINDINGS AND POOR PROGNOSIS, AND WORSENING OF HIS O2 SATS STATES HE DID NOT WANT VENTILATOR OR CPR 0903--ANOTHER FAMILY MEMBER OR FRIEND HAS NOW ARRIVED, AND HAS NOW CONVINCED TO MAKE HIM A FULL CODE AND HAS OK'D INTUBATION AND VENTILATOR. ECG Initial ECG Impression Date: Dec 05, 2019 Initial ECG Impression Time: 08:10 Initial ECG Rate: 43 Initial ECG Rhythm: [facility] Comments CT HEAD--MODERATE RIGHT CEREBELLAR INTRAPARENCHYMAL BLEED, WITH LARGE AMOUNT OF INTRACRANIAL BLEEDING IN ALL 4 VENTRICLES--REVIEWED SCAN WITH RADIOLOGIST IN XRAY DEPT AT 2037 CT CERVICAL SPINE--DEGENERATIVE CHANGES, NO ACUTE PROCESS, PER RADIOLOGIST REPORT AT 0855 CXR--ET TUBE NOT WELL VISUALIZED, NG TUBE COILED IN STOMACH--PER RADIOLOGIST REPORT AT 0945 Reviewed: Reviewed by Me Critical Care Note Critical Care Start Time: 08:05 Stop Time: 09:45 Progress SEE NURSING NOTES FOR DETAILS PT WAS GIVEN FFP AND K-CENTRA DUE TO ELIQUIS THERAPY AND SIGNIFICANT INTRACRANIAL BLEEDING CARDENE DRIP WAS ORDERED, AND INITIATED BY [facility] STAFF, THEY ARRIVED SHORTLY AFTER PT WAS INTUBATED AND BP WAS NOTED TO BE ELEVATING Departure Communication (Admissions) 0840--[facility] WAS CONTACTED FOR TRANSPORT 0842--CALLED [facility]. WILL CALL BACK. ALL RADIOLOGICAL STUDIES "CLOUDED" TO [facility] 0901--[facility] CALLED BACK. DR. BARILLAS, NEUROSURGEON, WAS CONTACTED, AND HE ADVISES THAT NO INTERVENTION IS RECOMMENDED, BUT ADMIT TO NEURO-ICU. DR. HARPREET ABRAMS, NEURO- [facility], HAS ACCEPTED THE PT FOR ADMIT/TRANSFER. NO ADDITIONAL RECOMMENDATIONS, OTHER THAN CARDENE DRIP IF BP REMAINS > 140 SYSTOLIC. Impression Primary Impression: INTRACEREBELLAR HEMORRHAGE Additional Impressions: Intraventricular hemorrhage ELIQUIS THERAPY HTN (hypertension), malignant Acute respiratory failure with hypoxia RENAL FAILURE/INSUFFICIENCY Elevated troponin Disposition: XFER SHT-TRM HOSP Condition: Critical Transfer Transfer Reason: Exceeds level of care Transfer Facility: Method of Transfer: Air ([facility]) Departure-Patient Inst. Referrals: JUAN SINGLETARY DO (PCP/Family) Primary Care Physician JOSE RAMON HERBERT DO Dec 05, 2019 09:18
[2019-12-05 09:30] LABS: CREATINE KINASE MB 6.1 NG/ML (<6.6); TSH (THYROID ANALYZER) 3.77 UIU/ML (0.35-4.94)
[2019-12-05] MEDS ORDERED: niCARdipine IV FOR DRIP 50 MG KIT ONE ×3 (09:38→09:40)
[2019-12-05] MEDS ORDERED: NS (IVPB) 250 ML ONE (09:40)
[2019-12-05 09:42] LABS: ELLIPT/OVALOCYTES SLIGHT; LYMPHOCYTES % (MANUAL) 8 %; MONOCYTES % (MANUAL) 2 %; NEUTROPHILS % (MANUAL) 90 %; POIKILOCYTOSIS SLIGHT; TOXIC GRANULATION/VACUOLAZATIO 1+
--- NOTE | 2019-12-05 09:42 | Diagnostic Imaging Report ---
INDICATION: Intubation. Time of exam 9:28 AM Correlation is made with prior chest from 07/07/2018. NG tube passes below the diaphragm. ET tube is not well seen. Mild bibasilar subsegmental atelectasis is noted. No effusion or pneumothorax is seen. IMPRESSION: NG tube coiled in the stomach. ET tube is not well-visualized. Dictated by: Dictated on workstation # [id number]
--- NOTE | 2019-12-05 09:50 | NUR ---
Saundra de la cruz in [facility] - 12/05/19 at 1046 by TBERNOT PT DOES NOT WANT PT INTUBATED.
--- NOTE | 2019-12-05 09:50 | NUR ---
PT DOES NOT WANT PT INTUBATED.
[2019-12-05 10:08] VITALS: BP 207/136
--- NOTE | 2019-12-05 10:30 | NUR ---
Provided calming presence, gently guided pt's Anastasiya and her family through feelings of grief and fatigue. Anastasiya said her began vomiting last night and fell between he commode and wall. Her daughter in law said they had been trying to reach their ecosystem ecology professor from [facility] [employer] and were unable to reach him. I contacted one of their elders, Matthew Benito, who said he would make attempts to reach the ecosystem ecology professor and come to see the family. The family said they were thankful for this, and asked that Josh Pro also be contacted as they attend buddhism together. I contacted Josh, who then spoke to Anastasiya to offer support via phone. The pt's Assembling Fabricator, retired Assembling Fabricator, and elder Matthew arrived for support in family waiting room. I facilitated communication between the family and medical staff while the pt was being intubated in preparation for life-flighted to . Pt was able to talk to his before being intubated. Accompanied the and her daughter in law to pt's bedside so she could see and talk to him before being transferred to . Remained present and attentive to pt's family approx 2 hours.
--- NOTE | 2019-12-05 11:07 | NUR ---
ED VISIT AND DR HERBERT NOTES FAXED TO [facility]
== END 2019-12-05 09:49 | disposition short-term general hospital (02) ==
LOC: EDUNIT# 08:04 → ER 08:06
DX: I61.5 Nontraumatic intracerebral hemorrhage, intraventricular (principal); I10 Essential (primary) hypertension; J96.01 Acute respiratory failure with hypoxia; N19 Unspecified kidney failure; R79.89 Other specified abnormal findings of blood chemistry; E03.9 Hypothyroidism, unspecified; Z79.01 Long term (current) use of anticoagulants; Z88.0 Allergy status to penicillin; Z88.8 Allergy status to other drugs, medicaments and biological substances; Z86.711 Personal history of pulmonary embolism; Z86.718 Personal history of other venous thrombosis and embolism
CPT/HCPCS: 31500; 36415; 36600; 51702; 70450; 71045; 72125; 80053; 81000; 82150; 82550; 82553; 82805; 82962; 83690; 83735; 83874; 83880; 84443; 84484; 85007; 85027; 85610; 85730; 86900; 86901; 93005; 93041; 96361; 96374; 96375